=== PATIENT | male | born 1995 | race Hispanic/Latino ===

== ENCOUNTER 2023-08-01 23:32 | Inpatient (IN) | payer OTHER ==
[2023-08-02] MEDS ORDERED: Ondansetron PF 4 MG/2 ML Vial ONE (00:40)
[2023-08-02 00:53] LABS: #Eosinphils 0.1 thou/uL (0.0-0.7); #Monocytes 0.5 thou/uL (0.11-0.59); #Neutrophils 3.9 thou/uL (1.40-6.50); %Basophils 0.6 % (0.0-1.0); %Eosinophils 0.7 % (0.0-10.0); %Lymphocytes 34.5 % (21.0-51.0); %Monocytes 7.7 % (0.0-10.0); %Neutrophils 56.1 % (42.0-75.0); Hematocrit 42.3 % (42.0-52.0); Hemoglobin 14.6 g/dL (14.0-18.0); Mean Corpuscular HGB CONC 34.5 g/dL (32.0-36.0); Mean Corpuscular Hemoglobin 27.8 pg (27.0-31.0); Mean Corpuscular Volume 80.6 fl (78.0-98.0); Mean Platelet Volume 10.7 fL (7.4-10.4); Platelet Count 273 10x3/uL (130-400); RBC Distribution Width 12.6 % (11.5-14.5); Red Blood Cell (RBC) Count 5.25 mill/uL (4.70-6.10)
[2023-08-02 01:16] LABS: ALT (SGPT) 21 U/L (8-55); AST (SGOT) 12 U/L (5-34); Alkaline Phosphatase 70 U/L (40-110); Anion Gap 14 mmol/L (10-20); BUN (Urea Nitrogen) 12 mg/dL (8.9-20.6); Bilirubin, Total 0.5 mg/dL (0.2-1.2); Calc. Creatinine Clearance 0 mL/min (70-130); Carbon Dioxide 21 mmol/L (22-29); Chloride 100 mmol/L (98-107); Estimated GFR 106; Globulin 3.3 g/dL (2.4-3.5); Lipase 14 U/L (8-78); Magnesium 1.8 mg/dL (1.6-2.6); Protein, Total 7.3 g/dL (6.0-8.3); Sodium 131 mmol/L (136-145)
[2023-08-02 01:20] LABS: Critical Call Chemistry ERS.DWZ@0120; Glucose 431 mg/dL (70-105)
[2023-08-02] MEDS ORDERED: Cefepime 2 GM VIAL ONE (02:40)
[2023-08-02] MEDS ORDERED: Sodium Chloride 0.9% 100 ML ONE (02:40)
[2023-08-02 03:00] LABS: SARS-CoV-2 NAA Rapid Test Not Detected (NotDetected)
[2023-08-02] MEDS ORDERED: Ondansetron PF 4 MG/2 ML Vial IVP PRN (03:28)
[2023-08-02] MEDS ORDERED: Dextrose 5% in Water 1,000 ML IV PRN (03:30)
[2023-08-02] MEDS ORDERED: Insulin Glargine 30 UNITS/0.3 ML VIAL SC SCH ×2 (03:30→21:00)
[2023-08-02] MEDS ORDERED: Dextrose 50% Abboject 50 ML SYRINGE SLOW IVP PRN (03:30)
[2023-08-02] MEDS ORDERED: Glucagon 1 MG/ML KIT IM PRN (03:30)
[2023-08-02 04:37] LABS: #Basophils 0.1 thou/uL (0.0-0.2); #Eosinphils 0.1 thou/uL (0.0-0.7); #Monocytes 0.5 thou/uL (0.11-0.59); #Neutrophils 3.4 thou/uL (1.40-6.50); %Basophils 0.9 % (0.0-1.0); %Eosinophils 1.3 % (0.0-10.0); %Lymphocytes 39.9 % (21.0-51.0); %Monocytes 7.6 % (0.0-10.0); Hematocrit 42.9 % (42.0-52.0); Hemoglobin 14.2 g/dL (14.0-18.0); Mean Corpuscular HGB CONC 33.1 g/dL (32.0-36.0); Mean Corpuscular Hemoglobin 27.2 pg (27.0-31.0); Mean Corpuscular Volume 82.2 fl (78.0-98.0); Mean Platelet Volume 10.9 fL (7.4-10.4); Platelet Count 264 10x3/uL (130-400); RBC Distribution Width 12.6 % (11.5-14.5); Red Blood Cell (RBC) Count 5.22 mill/uL (4.70-6.10); White Blood Cell (WBC) Count 6.7 10x3/uL (4.8-10.8)
[2023-08-02 04:38] LABS: Hemoglobin A1c 12.3 % (4.0-6.0)
[2023-08-02] MEDS: Insulin Glargine 30 UNITS/0.3 ML VIAL SC SCH (04:42)
[2023-08-02] MEDS: Sodium Chloride 0.9% 1,000 ML IV SCH (04:46)
[2023-08-02] MEDS: Vancomycin (BATCH) 2 GM in Premix 1 BAG IVPB SCH ×2 (04:46→13:32)
[2023-08-02 04:47] LABS: Lactic Acid 1.1 mmol/L (0.5-2.2)
[2023-08-02 04:50] LABS: Anion Gap 12 mmol/L (10-20); BUN (Urea Nitrogen) 11 mg/dL (8.9-20.6); Calc. Creatinine Clearance 0 mL/min (70-130); Calcium 8.8 mg/dL (7.8-10.44); Carbon Dioxide 24 mmol/L (22-29); Chloride 103 mmol/L (98-107); Estimated GFR 122; Glucose 283 mg/dL (70-105); Sodium 135 mmol/L (136-145)
[2023-08-02 04:52] VITALS: BMI 39.9
[2023-08-02] MEDS: HumaLOG 300 UNITS/3 ML VIAL SC PRN (13:32)
[2023-08-02] MEDS: Cefepime 2 GM in Sodium Chloride 0.9% 100 ML IVPB SCH (15:29)
[2023-08-02] MEDS: HumuLIN 70/30 100 Unit/ml 10 ml Vial SC SCH (17:10)
[2023-08-03 05:14] LABS: #Eosinphils 0.1 thou/uL (0.0-0.7); #Monocytes 0.5 thou/uL (0.11-0.59); #Neutrophils 3.3 thou/uL (1.40-6.50); %Basophils 0.7 % (0.0-1.0); %Eosinophils 1.6 % (0.0-10.0); %Lymphocytes 35.6 % (21.0-51.0); %Monocytes 7.6 % (0.0-10.0); %Neutrophils 54.2 % (42.0-75.0); Hematocrit 39.6 % (42.0-52.0); Hemoglobin 13.3 g/dL (14.0-18.0); Mean Corpuscular HGB CONC 33.6 g/dL (32.0-36.0); Mean Corpuscular Hemoglobin 27.5 pg (27.0-31.0); Platelet Count 244 10x3/uL (130-400); RBC Distribution Width 12.6 % (11.5-14.5); Red Blood Cell (RBC) Count 4.83 mill/uL (4.70-6.10); White Blood Cell (WBC) Count 6.2 10x3/uL (4.8-10.8)
[2023-08-03 05:38] LABS: Anion Gap 10 mmol/L (10-20); BUN (Urea Nitrogen) 7 mg/dL (8.9-20.6); Calc. Creatinine Clearance 299 mL/min (70-130); Calcium 8.4 mg/dL (7.8-10.44); Carbon Dioxide 26 mmol/L (22-29); Chloride 104 mmol/L (98-107); Estimated GFR 126; Glucose 301 mg/dL (70-105); Potassium 4.1 mmol/L (3.5-5.1); Sodium 136 mmol/L (136-145)
[2023-08-03 05:39] LABS: Vancomycin, Trough 19.9 ug/mL
[2023-08-03] MEDS ORDERED: HYDROmorphone 0.5 MG/0.5 ML SYRINGE ONE (07:05)
[2023-08-03] MEDS ORDERED: Insulin Regular 300 UNITS/3 ML VIAL ONE (07:23)
[2023-08-03] MEDS ORDERED: PROPOFOL 20 ML ONE (07:26)
[2023-08-03] MEDS ORDERED: fentaNYL PF 100 MCG/2 ML SYRINGE ONE ×3 (07:26→08:26)
[2023-08-03] MEDS ORDERED: Ondansetron PF 4 MG/2 ML Vial ONE (07:26)
[2023-08-03] MEDS ORDERED: Metoclopramide HCl 10 MG (2 mL) VIAL ONE (07:26)
[2023-08-03] MEDS ORDERED: Lidocaine 1% PF 5 ML VIAL ONE (07:26)
[2023-08-03] MEDS ORDERED: Midazolam HCl 2 mg/2 ml Vial ONE (07:27)
[2023-08-03] MEDS ORDERED: Promethazine HCl 25 MG/ML VIAL IM PRN (08:13)
[2023-08-03] MEDS ORDERED: Ondansetron HCl/PF 4 MG/2 ML Vial IVP PRN (08:13)
[2023-08-03] MEDS ORDERED: Ketorolac Tromethamine 30 MG/ML VIAL IVP PRN (08:13)
[2023-08-03] MEDS: Atorvastatin Calcium 40 MG TAB PO SCH (09:47)
[2023-08-03] MEDS: HumaLOG 300 UNITS/3 ML VIAL SC PRN (21:18)
[2023-08-03] MEDS: Acetaminophen 325 MG TAB PO PRN (21:19)
[2023-08-04] MEDS: Gabapentin 100 MG CAP PO PRN (03:07)
[2023-08-04 05:23] LABS: #Eosinphils 0.1 thou/uL (0.0-0.7); #Monocytes 0.4 thou/uL (0.11-0.59); #Neutrophils 3.1 thou/uL (1.40-6.50); %Basophils 0.7 % (0.0-1.0); %Eosinophils 1.8 % (0.0-10.0); %Lymphocytes 36.4 % (21.0-51.0); %Neutrophils 53.9 % (42.0-75.0); Hematocrit 41.4 % (42.0-52.0); Hemoglobin 13.6 g/dL (14.0-18.0); Mean Corpuscular HGB CONC 32.9 g/dL (32.0-36.0); Mean Corpuscular Hemoglobin 27.4 pg (27.0-31.0); Mean Corpuscular Volume 83.3 fl (78.0-98.0); Mean Platelet Volume 11.9 fL (7.4-10.4); Platelet Count 207 10x3/uL (130-400); RBC Distribution Width 12.8 % (11.5-14.5); Red Blood Cell (RBC) Count 4.97 mill/uL (4.70-6.10); White Blood Cell (WBC) Count 5.7 10x3/uL (4.8-10.8)
[2023-08-04 05:45] LABS: Vancomycin, Trough 17.4 ug/mL
[2023-08-04 05:46] LABS: Anion Gap 12 mmol/L (10-20); BUN (Urea Nitrogen) 8 mg/dL (8.9-20.6); Calc. Creatinine Clearance 291 mL/min (70-130); Calcium 8.5 mg/dL (7.8-10.44); Carbon Dioxide 24 mmol/L (22-29); Chloride 104 mmol/L (98-107); Estimated GFR 125; Glucose 232 mg/dL (70-105); Potassium 4.3 mmol/L (3.5-5.1); Sodium 136 mmol/L (136-145)
[2023-08-04] MEDS: HumuLIN 70/30 100 Unit/ml 10 ml Vial SC SCH ×2 (08:07→17:36)
[2023-08-05 01:52] VITALS: TEMP 97.7
[2023-08-05 05:51] LABS: Vancomycin, Trough 26.2 ug/mL
[2023-08-05] MEDS: HumuLIN 70/30 100 Unit/ml 10 ml Vial SC SCH (08:24)
[2023-08-05] MEDS: Lisinopril 10 MG TAB PO SCH (08:24)
[2023-08-05 08:30] VITALS: BP 124/79
[2023-08-05 12:31] LABS: Vancomycin, Random 8.1 ug/mL (See Comment)
[2023-08-05] MEDS: Vancomycin (BATCH) 1.5 GM in Premix 1 BAG IVPB SCH (13:23)
== END 2023-08-05 17:20 | disposition home or self-care (01) | DRG 623 ==
LOC: ERS 23:32 → T4-A 08-02 03:30
PROVIDERS: ADMIT Internal Medicine; ATTEND Internal Medicine
PROC: 0JBR0ZZ Excision of Left Foot Subcutaneous Tissue and Fascia, Open Approach (ICD-10-PCS; principal; 2023-08-03)
PROC: 0JBQ0ZZ Excision of Right Foot Subcutaneous Tissue and Fascia, Open Approach (ICD-10-PCS; 2023-08-03)
DX: E10.621 Type 1 diabetes mellitus with foot ulcer (principal); Z68.41 Body mass index [BMI] 40.0-44.9, adult; L97.519 Non-pressure chronic ulcer of other part of right foot with unspecified severity; E10.65 Type 1 diabetes mellitus with hyperglycemia; I10 Essential (primary) hypertension; E78.5 Hyperlipidemia, unspecified; Z11.52 Encounter for screening for COVID-19; Z88.0 Allergy status to penicillin; E10.42 Type 1 diabetes mellitus with diabetic polyneuropathy; Z83.3 Family history of diabetes mellitus; E66.01 Morbid (severe) obesity due to excess calories; L08.9 Local infection of the skin and subcutaneous tissue, unspecified; Z79.4 Long term (current) use of insulin
CPT/HCPCS: 36415; 36416; 80048; 80053; 80202; 82010; 83036; 83605; 83690; 83735; 85025; 86140; 87040; 87070; 87076; 87077; 87186; 87205; 97139; J0692; J1170; J1815; J2250; J2405; J2704; J2765; J3370; J3490; J7050